=== PATIENT | female | born 1955 | race Caucasian/White ===

== ENCOUNTER 2022-02-02 17:12 | Inpatient (IN) ==
[2022-02-02] MEDS ORDERED: Acetaminophen 325 MG TABLET PO PRN (19:26)
[2022-02-02] MEDS ORDERED: Naloxone 0.4 MG/ML INJ IVP PRN (19:26)
[2022-02-02] MEDS ORDERED: *HR* LORazepam 1 MG TABLET PO PRN ×3 (20:23)
[2022-02-02 20:36] LABS: Calcium 7.9 mg/dL (8.6-10.3); Potassium 5.5 mEq/L (3.5-5.1)
[2022-02-02] MEDS ORDERED: *HR* Dextrose 50 % in Water (Syg) 50 ML SYRINGE IVP PRN (20:57)
[2022-02-02] MEDS ORDERED: D5% in Water 1,000 ML IVC PRN (20:57)
[2022-02-02] MEDS ORDERED: Dextrose Gel 15 GM/37.5 ML TUBE PO PRN ×2 (20:57)
[2022-02-02 20:59] LABS: Potassium,Urine 43.9 mEq/L; Sodium, Urine 10.2 mEq/L
[2022-02-02 21:07] LABS: Amphetamine Screen,Urine Negative ng/mL (Cutoff=1000); Barbiturate Screen,Urine Negative ng/mL (Cutoff=200); Benzodiazepines Screen,Urine Negative ng/mL (Cutoff=200); Cannabinoid Screen,Urine Negative ng/mL (Cutoff = 50); Cocaine Screen,Urine Negative ng/mL (Cutoff= 300); Opiate Screen,Urine Negative ng/mL (Cutoff=300); Phencyclidine Screen,Urine Negative ng/mL (Cutoff=25)
[2022-02-02 21:25] LABS: Bilirubin,Urine Negative (Negative); Blood,Urine Negative (Negative); Clarity,Urine Clear (Clear); Color,Urine Light-Yellow (Yellow); Glucose,Urine (UA) Normal (Normal); Ketones,Urine Negative (Negative); Leukocyte Esterase,Urine Trace (Negative); Nitrite,Urine Positive (Negative); Protein,Urine Negative (Neg-Trace); Specific Gravity,Urine 1.013 (1.010-1.025); Urobilinogen,Urine Normal (Normal)
[2022-02-02] MEDS: 0.9 % Sodium Chloride 1,000 ML IVC SCH (21:25)
[2022-02-02] MEDS: Ondansetron 4 MG/2 ML VIAL IVP PRN (21:25)
[2022-02-02 21:26] LABS: Bacteria,Urine Few per hpf (None-Few); RBC,Urine 0-3 per hpf (0-3); Squamous Epithelial Cell,Urine Few per hpf (None-Few); WBC,Urine 0-3 per hpf (0-3)
[2022-02-02] MEDS ORDERED: methylPREDNISolone 125 MG/2 ML VIAL IVP ONE (21:27)
[2022-02-02] MEDS ORDERED: SODIUM ZIRCONIUM CYCLOSILICATE 5 GM POWD.PACK PO ONE (21:30)
[2022-02-02] MEDS ORDERED: *HR* Heparin 5,000 UNIT/ML VIAL IVP ONE (21:37)
[2022-02-02] MEDS ORDERED: *HR* Heparin 5,000 UNIT/ML VIAL IVP PRN ×2 (21:37)
[2022-02-02 21:41] LABS: Adenovirus Not Detected (Not Detect); Bordetella Pertussis Not Detected (Not Detect); Chlamydophila pneumoniae Not Detected (Not Detect); Coronavirus 229E Not Detected (Not Detect); Coronavirus HKU1 Not Detected (Not Detect); Coronavirus NL63 Not Detected (Not Detect); Coronavirus OC43 Not Detected (Not Detect); Human Metapneumovirus Not Detected (Not Detect); Human Rhinovirus/Enterovirus DETECTED (Not Detect); Influenza A Subtype 2009 H1 Not Detected (Not Detect); Influenza B Not Detected (Not Detect); Mycoplasma pneumoniae Not Detected (Not Detect); Parainfluenza Virus 1 Not Detected (Not Detect); Parainfluenza Virus 2 Not Detected (Not Detect); Parainfluenza Virus 3 Not Detected (Not Detect); Parainfluenza Virus 4 Not Detected (Not Detect); Respiratory Syncytial Virus Not Detected (Not Detect); SARS-CoV-2 Not Detected (Not Detect)
[2022-02-02 22:03] LABS: Hematocrit 23.9 % (35.3-44.9); Mean Corpuscular HGB Conc 33.5 g/dL (31.6-35.5); Mean Corpuscular Hemoglobin 28.7 pg (28.0-33.3); Mean Corpuscular Volume 85.7 fL (83.0-100.0); Mean Platelet Volume 8.9 fL (9.4-12.4); Platelet Count 121 K/mcL (140-400); Red Blood Count 2.79 M/mcL (3.82-4.97); Red Cell Distribution Width 13.4 % (11.5-14.5); White Blood Count 12.1 K/mcL (4.3-11.1)
[2022-02-02] MEDS: *HR* Metoprolol 5 MG/5 ML VIAL IVP PRN (22:25)
[2022-02-02] MEDS ORDERED: GI Cocktail 40 ML EACH PO ONE (23:32)
[2022-02-03] MEDS: Heparin 25,000UNIT/250ML 1/2NS 25,000 UNIT/250 ML IV.SOLN IVC SCH (00:09)
[2022-02-03] MEDS: Insulin LISPRO 300 UNITS/3 ML VIAL SUBQ SCH ×6 (00:17→20:59)
[2022-02-03 02:03] LABS: Eosinophils % 0.1 %; Hemoglobin 7.8 g/dL (11.5-15.4); Immature Granulocytes % 0.3 % (0-4); Lymphocytes % 34.7 %
[2022-02-03 02:05] LABS: Basophils % 0.1 %; Hematocrit 23.4 % (35.3-44.9); Immature Platelets 0.7 % (1.1-6.1); Lymphocytes # 3.2 K/mcL (0.6-4.6); Mean Corpuscular HGB Conc 33.3 g/dL (31.6-35.5); Mean Corpuscular Hemoglobin 28.5 pg (28.0-33.3); Mean Corpuscular Volume 85.4 fL (83.0-100.0); Mean Platelet Volume 8.7 fL (9.4-12.4); Monocytes # 0.2 K/mcL (0.0-1.3); Monocytes % 1.6 %; Neutrophils # 5.8 K/mcL (1.6-8.9); Platelet Count 120 K/mcL (140-400); Red Blood Count 2.74 M/mcL (3.82-4.97); Red Cell Distribution Width 13.3 % (11.5-14.5); Segmented Neutrophils % 63.2 %; White Blood Count 9.2 K/mcL (4.3-11.1)
[2022-02-03 02:11] LABS: Prothrombin Time 10.8 Seconds (9.4-12.1)
[2022-02-03 03:48] LABS: BUN/Creatinine Ratio 33 (6-26); Blood Urea Nitrogen 52 mg/dL (8-23); Calcium 7.7 mg/dL (8.6-10.3); Carbon Dioxide 24 mEq/L (23-29); Chloride 89 mEq/L (98-107); Chol/HDL Ratio 1.5 (0-4.9); Cholesterol 140 mg/dL (< 200); Ethanol < 10 mg/dL (Less than 10); Glucose 129 mg/dL (70-105); HDL Cholesterol 94 mg/dL (40-59); LDL Cholesterol,Calculated 29 mg/dL (< 100); Magnesium 2.3 mg/dL (1.6-2.6); Osmolality,Calculated 272 (280-300); Phosphorous 3.1 mg/dL (2.7-4.5); Potassium 5.4 mEq/L (3.5-5.1); Sodium 123 mEq/L (136-145); Triglycerides 87 mg/dL (< 150); Troponin I 0.05 ng/mL (< 0.04)
[2022-02-03 03:55] LABS: Thyroid Stimulating Hormone 1.391 mcIU/mL (0.340-5.600)
[2022-02-03 08:26] LABS: Calcium 7.3 mg/dL (8.6-10.3); Potassium 5.4 mEq/L (3.5-5.1)
[2022-02-03] MEDS: Vitamin B Complex/Vit C/Vit E 1 EACH TABLET PO SCH (08:54)
[2022-02-03] MEDS: Folic Acid 1 MG TABLET PO SCH (08:54)
[2022-02-03] MEDS: Thiamine (B-1) 100 MG TABLET PO SCH (08:54)
[2022-02-03] MEDS: cefTRIAXone 1,000 MG in 0.9 % Sodium Chloride Mini Bag 100 ML IVPB SCH (08:58)
[2022-02-03] MEDS ORDERED: SODIUM ZIRCONIUM CYCLOSILICATE 5 GM POWD.PACK PO ONE (09:26)
[2022-02-03] MEDS ORDERED: Insulin Human Regular 10 UNIT in 0.9 % Sodium Chloride 10 ML IV ONE (09:32)
[2022-02-03] MEDS ORDERED: *HR* Dextrose 50 % in Water (Syg) 50 ML SYRINGE IVP ONE (09:32)
[2022-02-03] MEDS: 0.9 % Sodium Chloride 1,000 ML IVC SCH (09:33)
[2022-02-03] MEDS ORDERED: Calcium Gluconate 1gm/50mL 1 GM/50 ML BAG IVPB ONE (10:29)
[2022-02-03] MEDS: Azithromycin 500 MG in 0.9 % Sodium Chloride 250 ML IVPB SCH (10:34)
[2022-02-03] MEDS: Ipratropium/Albuterol Neb 3 ML IH PRN ×2 (11:48→16:22)
[2022-02-03] MEDS: GI Cocktail 40 ML EACH PO PRN ×2 (12:56→21:08)
[2022-02-03] MEDS: *HR* Metoprolol 5 MG/5 ML VIAL IVP PRN (13:17)
[2022-02-03 14:53] LABS: % Iron Saturation 25 % (15-50); Calcium 7.5 mg/dL (8.6-10.3); Ferritin 209 ng/mL (10-120); Iron 61 mcg/dL (50-170); Potassium 4.7 mEq/L (3.5-5.1); Transferrin 175 mg/dL (203-362)
[2022-02-03 15:04] LABS: Folate > 22.3 ng/mL (3.0-16.0); Vitamin B12 1035 pg/mL (250-1100)
[2022-02-03] MEDS: Budesonide/Formoterol 160/4.5 1 PUFF INH IH SCH (20:19)
[2022-02-03 20:31] LABS: Calcium 7.9 mg/dL (8.6-10.3); Potassium 4.1 mEq/L (3.5-5.1)
[2022-02-03] MEDS: Metoprolol 100 MG TABLET PO SCH (21:05)
[2022-02-03] MEDS: Melatonin 3 MG TABLET PO PRN (23:23)
[2022-02-04] MEDS: Heparin 25,000UNIT/250ML 1/2NS 25,000 UNIT/250 ML IV.SOLN IVC SCH (00:58)
[2022-02-04 06:50] LABS: Hematocrit 24.8 % (35.3-44.9); Hemoglobin 7.7 g/dL (11.5-15.4); Mean Corpuscular Hemoglobin 27.8 pg (28.0-33.3); Mean Corpuscular Volume 89.5 fL (83.0-100.0); Mean Platelet Volume 8.8 fL (9.4-12.4); Red Blood Count 2.77 M/mcL (3.82-4.97); Red Cell Distribution Width 13.8 % (11.5-14.5); White Blood Count 11.9 K/mcL (4.3-11.1)
[2022-02-04 06:51] LABS: Platelet Count 96 K/mcL (140-400)
[2022-02-04 07:01] LABS: Calcium 7.6 mg/dL (8.6-10.3); Potassium 4.1 mEq/L (3.5-5.1)
[2022-02-04] MEDS ORDERED: Tiotropium 10 INH DOSE IH ONE (07:33)
[2022-02-04] MEDS: Folic Acid 1 MG TABLET PO SCH (07:37)
[2022-02-04] MEDS: Metoprolol 100 MG TABLET PO SCH ×2 (07:37→19:57)
[2022-02-04] MEDS: Azithromycin 500 MG in 0.9 % Sodium Chloride 250 ML IVPB SCH (07:37)
[2022-02-04] MEDS: Thiamine (B-1) 100 MG TABLET PO SCH (07:37)
[2022-02-04] MEDS: Vitamin B Complex/Vit C/Vit E 1 EACH TABLET PO SCH (07:37)
[2022-02-04] MEDS: cefTRIAXone 1,000 MG in 0.9 % Sodium Chloride Mini Bag 100 ML IVPB SCH (07:40)
[2022-02-04] MEDS: Budesonide/Formoterol 160/4.5 1 PUFF INH IH SCH ×2 (07:42→20:28)
[2022-02-04] MEDS: Ipratropium/Albuterol Neb 3 ML IH PRN ×2 (07:42→20:27)
[2022-02-04] MEDS: Furosemide 40 MG TABLET PO SCH (07:43)
[2022-02-04] MEDS: Aspirin Enteric Coated 81 MG Tablet PO SCH (07:43)
[2022-02-04] MEDS: Tiotropium 10 INH DOSE IH SCH (07:44)
[2022-02-04] MEDS: Insulin LISPRO 300 UNITS/3 ML VIAL SUBQ SCH ×4 (08:29→19:59)
[2022-02-04] MEDS ORDERED: NON-FORMULARY MEDICATION 1 EACH EACH (Fluticasone/Umeclidin/Vilanter [Trelegy Ellipta 100- IH SCH (09:00)
[2022-02-04] MEDS ORDERED: SODIUM ZIRCONIUM CYCLOSILICATE 5 GM POWD.PACK PO ONE (09:26)
[2022-02-04] MEDS: Apixaban 5 MG TABLET PO SCH ×2 (11:20→19:56)
[2022-02-04] MEDS: Pantoprazole 40 MG VIAL IVP SCH (17:58)
[2022-02-04] MEDS: Melatonin 3 MG TABLET PO PRN (19:56)
[2022-02-05] MEDS: predniSONE 20 MG TABLET PO SCH ×2 (02:18→10:00)
[2022-02-05] MEDS: Pantoprazole 40 MG VIAL IVP SCH ×2 (05:56→18:20)
[2022-02-05] MEDS: Ipratropium/Albuterol Neb 3 ML IH PRN ×4 (08:04→21:28)
[2022-02-05] MEDS: Budesonide/Formoterol 160/4.5 1 PUFF INH IH SCH ×2 (08:04→21:28)
[2022-02-05] MEDS: Tiotropium 10 INH DOSE IH SCH (08:05)
[2022-02-05] MEDS: Insulin LISPRO 300 UNITS/3 ML VIAL SUBQ SCH ×4 (08:19→21:36)
[2022-02-05 09:47] LABS: Eosinophils % 0.2 %
[2022-02-05 09:49] LABS: Basophils % 0.1 %; Hematocrit 23.5 % (35.3-44.9); Hemoglobin 7.3 g/dL (11.5-15.4); Immature Granulocytes % 0.2 % (0-4); Immature Platelets 1.2 % (1.1-6.1); Lymphocytes # 3.4 K/mcL (0.6-4.6); Lymphocytes % 37.8 %; Mean Corpuscular HGB Conc 31.1 g/dL (31.6-35.5); Mean Corpuscular Hemoglobin 28.6 pg (28.0-33.3); Mean Corpuscular Volume 92.2 fL (83.0-100.0); Mean Platelet Volume 8.7 fL (9.4-12.4); Monocytes # 0.8 K/mcL (0.0-1.3); Monocytes % 8.9 %; Red Blood Count 2.55 M/mcL (3.82-4.97); Red Cell Distribution Width 13.6 % (11.5-14.5); Segmented Neutrophils % 52.8 %
[2022-02-05] MEDS: Metoprolol 100 MG TABLET PO SCH ×2 (10:00→21:36)
[2022-02-05] MEDS: Thiamine (B-1) 100 MG TABLET PO SCH (10:00)
[2022-02-05] MEDS: Vitamin B Complex/Vit C/Vit E 1 EACH TABLET PO SCH (10:01)
[2022-02-05] MEDS: Azithromycin 500 MG in 0.9 % Sodium Chloride 250 ML IVPB SCH (10:01)
[2022-02-05] MEDS: Furosemide 40 MG TABLET PO SCH (10:01)
[2022-02-05] MEDS: Apixaban 5 MG TABLET PO SCH ×2 (10:01→21:36)
[2022-02-05] MEDS: Aspirin Enteric Coated 81 MG Tablet PO SCH (10:01)
[2022-02-05] MEDS: cefTRIAXone 1,000 MG in 0.9 % Sodium Chloride Mini Bag 100 ML IVPB SCH (10:04)
[2022-02-05 10:06] LABS: Neutrophils # 4.8 K/mcL (1.6-8.9); Platelet Count 94 K/mcL (140-400)
[2022-02-05 10:10] LABS: Calcium 8.1 mg/dL (8.6-10.3)
[2022-02-05] MEDS: Fluticasone Propionate Nasal 50 MCG/SPRAY BOTTLE NS SCH (10:10)
[2022-02-05 10:41] LABS: Platelet Estimate Decreased (Normal)
[2022-02-05 10:42] LABS: Anisocytosis 1+ (Not Present)
[2022-02-05] MEDS ORDERED: 0.9 % Sodium Chloride 250 ML IVC SCH (11:45)
[2022-02-05] MEDS ORDERED: 0.9 % Sodium Chloride 250 ML ONE (15:25)
[2022-02-05] MEDS ORDERED: SODIUM CHLORIDE/NAHCO3/KCL/PEG 4,000 ML SOLN.RECON PO ONE (17:00)
[2022-02-06] MEDS: Ipratropium/Albuterol Neb 3 ML IH PRN ×4 (03:43→20:26)
[2022-02-06] MEDS: Pantoprazole 40 MG VIAL IVP SCH (06:07)
[2022-02-06] MEDS ORDERED: Albuterol 2.5 MG/3 ML NEBULIZER IH PRN (06:37)
[2022-02-06 08:48] LABS: Mean Corpuscular Hemoglobin 28.7 pg (28.0-33.3)
[2022-02-06 08:50] LABS: Hematocrit 24.8 % (35.3-44.9); Hemoglobin 7.8 g/dL (11.5-15.4); Immature Platelets 1.3 % (1.1-6.1); Mean Corpuscular HGB Conc 31.5 g/dL (31.6-35.5); Mean Corpuscular Volume 91.2 fL (83.0-100.0); Mean Platelet Volume 8.4 fL (9.4-12.4); Red Blood Count 2.72 M/mcL (3.82-4.97); Red Cell Distribution Width 13.9 % (11.5-14.5); White Blood Count 10.5 K/mcL (4.3-11.1)
[2022-02-06] MEDS: cefTRIAXone 1,000 MG in 0.9 % Sodium Chloride Mini Bag 100 ML IVPB SCH (08:56)
[2022-02-06 09:07] LABS: Calcium 7.4 mg/dL (8.6-10.3); Potassium 3.9 mEq/L (3.5-5.1)
[2022-02-06] MEDS: Insulin LISPRO 300 UNITS/3 ML VIAL SUBQ SCH ×4 (09:20→21:40)
[2022-02-06] MEDS: Budesonide/Formoterol 160/4.5 1 PUFF INH IH SCH ×2 (09:36→20:24)
[2022-02-06] MEDS: Tiotropium 10 INH DOSE IH SCH (09:37)
[2022-02-06] MEDS ORDERED: Lidocaine -MPF 2% 2 ML VIAL ONE ×2 (10:02→11:36)
[2022-02-06] MEDS ORDERED: *HR* Propofol 200 MG/20 ML VIAL IVP ONE ×2 (10:20→11:47)
[2022-02-06] MEDS ORDERED: Lidocaine -MPF 4% 5 ML AMPUL ONE (10:41)
[2022-02-06] MEDS ORDERED: Dexmedetomidine HCl 400 MCG/100 ML MLS IVC ONE (10:47)
[2022-02-06] MEDS ORDERED: Simethicone 40 MG/0.6 ML MLS ONE (11:39)
[2022-02-06] MEDS ORDERED: Simethicone 40 MG/0.6 ML MLS IR ONE (11:41)
[2022-02-06] MEDS ORDERED: *HR* Metoprolol 5 MG/5 ML VIAL IVP ONE (11:46)
[2022-02-06] MEDS: Vitamin B Complex/Vit C/Vit E 1 EACH TABLET PO SCH (13:59)
[2022-02-06] MEDS: Apixaban 5 MG TABLET PO SCH ×2 (14:00→21:40)
[2022-02-06] MEDS: predniSONE 20 MG TABLET PO SCH (14:01)
[2022-02-06] MEDS: Thiamine (B-1) 100 MG TABLET PO SCH (14:01)
[2022-02-06] MEDS: Metoprolol 100 MG TABLET PO SCH ×2 (14:02→21:41)
[2022-02-06] MEDS: Azithromycin 250 MG TABLET PO SCH (14:03)
[2022-02-06] MEDS: Furosemide 40 MG TABLET PO SCH (14:04)
[2022-02-06] MEDS: Fluticasone Propionate Nasal 50 MCG/SPRAY BOTTLE NS SCH (14:05)
[2022-02-06] MEDS ORDERED: Benzonatate 100 MG CAPSULE PO PRN (15:22)
[2022-02-07 05:53] LABS: Mean Platelet Volume 8.6 fL (9.4-12.4)
[2022-02-07 05:55] LABS: Hematocrit 24.1 % (35.3-44.9); Hemoglobin 7.5 g/dL (11.5-15.4); Mean Corpuscular HGB Conc 31.1 g/dL (31.6-35.5); Mean Corpuscular Hemoglobin 28.1 pg (28.0-33.3); Mean Corpuscular Volume 90.3 fL (83.0-100.0); Platelet Count 136 K/mcL (140-400); Red Blood Count 2.67 M/mcL (3.82-4.97); Red Cell Distribution Width 14.2 % (11.5-14.5); White Blood Count 9.1 K/mcL (4.3-11.1)
[2022-02-07 06:11] LABS: Calcium 7.5 mg/dL (8.6-10.3)
[2022-02-07 06:34] LABS: Lymphocytes # 5.1 K/mcL (0.6-4.6); Monocytes # 0.2 K/mcL (0.0-1.3); Neutrophils # 3.8 K/mcL (1.6-8.9); Platelet Estimate Decreased (Normal)
[2022-02-07] MEDS: Ipratropium/Albuterol Neb 3 ML IH PRN ×4 (07:20→20:23)
[2022-02-07] MEDS: Budesonide/Formoterol 160/4.5 1 PUFF INH IH SCH ×2 (07:20→20:23)
[2022-02-07] MEDS: Tiotropium 10 INH DOSE IH SCH (07:22)
[2022-02-07] MEDS: Insulin LISPRO 300 UNITS/3 ML VIAL SUBQ SCH ×4 (07:32→20:40)
[2022-02-07] MEDS: Azithromycin 250 MG TABLET PO SCH (09:06)
[2022-02-07] MEDS: Vitamin B Complex/Vit C/Vit E 1 EACH TABLET PO SCH (09:06)
[2022-02-07] MEDS: cefTRIAXone 1,000 MG in 0.9 % Sodium Chloride Mini Bag 100 ML IVPB SCH (09:06)
[2022-02-07] MEDS: Thiamine (B-1) 100 MG TABLET PO SCH (09:07)
[2022-02-07] MEDS: Fluticasone Propionate Nasal 50 MCG/SPRAY BOTTLE NS SCH (09:07)
[2022-02-07] MEDS: predniSONE 20 MG TABLET PO SCH (09:07)
[2022-02-07] MEDS: Metoprolol 100 MG TABLET PO SCH ×2 (09:07→20:40)
[2022-02-07] MEDS: Furosemide 40 MG TABLET PO SCH (09:07)
[2022-02-07] MEDS: Ondansetron 4 MG/2 ML VIAL IVP PRN (10:57)
[2022-02-07] MEDS ORDERED: Patient Taking Own Medication 1 EACH PO SCH (18:50)
[2022-02-08] MEDS: Ipratropium/Albuterol Neb 3 ML IH PRN ×5 (01:41→19:54)
[2022-02-08] MEDS: Budesonide/Formoterol 160/4.5 1 PUFF INH IH SCH ×2 (07:19→19:55)
[2022-02-08] MEDS: Tiotropium 10 INH DOSE IH SCH (07:21)
[2022-02-08 07:48] LABS: Calcium 7.4 mg/dL (8.6-10.3); Potassium 3.5 mEq/L (3.5-5.1)
[2022-02-08 07:55] LABS: Hematocrit 22.9 % (35.3-44.9); Hemoglobin 7.2 g/dL (11.5-15.4); Mean Corpuscular HGB Conc 31.4 g/dL (31.6-35.5); Mean Corpuscular Hemoglobin 28.7 pg (28.0-33.3); Mean Corpuscular Volume 91.2 fL (83.0-100.0); Mean Platelet Volume 8.5 fL (9.4-12.4); Platelet Count 113 K/mcL (140-400); Red Blood Count 2.51 M/mcL (3.82-4.97); Red Cell Distribution Width 14.3 % (11.5-14.5); White Blood Count 8.2 K/mcL (4.3-11.1)
[2022-02-08] MEDS: Metoprolol 100 MG TABLET PO SCH ×2 (08:35→21:15)
[2022-02-08] MEDS: Thiamine (B-1) 100 MG TABLET PO SCH (08:35)
[2022-02-08] MEDS: Insulin LISPRO 300 UNITS/3 ML VIAL SUBQ SCH ×4 (08:35→21:14)
[2022-02-08] MEDS: Vitamin B Complex/Vit C/Vit E 1 EACH TABLET PO SCH (08:35)
[2022-02-08] MEDS: Furosemide 40 MG TABLET PO SCH (08:35)
[2022-02-08] MEDS: Fluticasone Propionate Nasal 50 MCG/SPRAY BOTTLE NS SCH (08:35)
[2022-02-08 09:49] LABS: Hypochromasia Present (Not Present); Lymphocytes # 4.4 K/mcL (0.6-4.6); Monocytes # 0.8 K/mcL (0.0-1.3); Poikilocytosis 1+ (Not Present)
[2022-02-08 09:50] LABS: Large Platelets Present (Not Present); Platelet Estimate Slight Decrease (Normal)
[2022-02-08] MEDS ORDERED: 0.9 % Sodium Chloride 250 ML IVC SCH (10:45)
[2022-02-08] MEDS: Melatonin 3 MG TABLET PO PRN (21:15)
[2022-02-08] MEDS: Ipratropium/Albuterol Neb 3 ML IH SCH (22:44)
[2022-02-09 02:17] LABS: Basophils % 0.1 %; Eosinophils # 0.2 K/mcL (0.0-0.6); Eosinophils % 2.2 %; Hemoglobin 8.6 g/dL (11.5-15.4); Immature Granulocytes % 0.5 % (0-4); Lymphocytes # 3.8 K/mcL (0.6-4.6); Lymphocytes % 48.3 %; Mean Corpuscular HGB Conc 31.9 g/dL (31.6-35.5); Mean Corpuscular Hemoglobin 28.6 pg (28.0-33.3); Mean Corpuscular Volume 89.7 fL (83.0-100.0); Mean Platelet Volume 8.1 fL (9.4-12.4); Monocytes # 0.7 K/mcL (0.0-1.3); Monocytes % 8.9 %; Neutrophils # 3.1 K/mcL (1.6-8.9); Platelet Count 113 K/mcL (140-400); Red Blood Count 3.01 M/mcL (3.82-4.97); Red Cell Distribution Width 14.4 % (11.5-14.5); White Blood Count 7.8 K/mcL (4.3-11.1)
[2022-02-09 02:36] LABS: Calcium 7.4 mg/dL (8.6-10.3); Potassium 3.8 mEq/L (3.5-5.1)
[2022-02-09] MEDS: Ipratropium/Albuterol Neb 3 ML IH SCH ×5 (04:26→19:59)
[2022-02-09 04:40] LABS: Hypochromasia Present (Not Present); Platelet Estimate Decreased (Normal)
[2022-02-09] MEDS: Tiotropium 10 INH DOSE IH SCH (07:57)
[2022-02-09] MEDS: Budesonide/Formoterol 160/4.5 1 PUFF INH IH SCH ×2 (07:57→19:59)
[2022-02-09] MEDS: Vitamin B Complex/Vit C/Vit E 1 EACH TABLET PO SCH (08:12)
[2022-02-09] MEDS: Metoprolol 100 MG TABLET PO SCH ×2 (08:12→21:05)
[2022-02-09] MEDS: Fluticasone Propionate Nasal 50 MCG/SPRAY BOTTLE NS SCH (08:12)
[2022-02-09] MEDS: Thiamine (B-1) 100 MG TABLET PO SCH (08:12)
[2022-02-09] MEDS: Furosemide 40 MG TABLET PO SCH (08:12)
[2022-02-09 08:18] VITALS: TEMP 97.6
[2022-02-09] MEDS: Insulin LISPRO 300 UNITS/3 ML VIAL SUBQ SCH ×4 (08:27→21:05)
[2022-02-09 21:02] VITALS: BP 157/64; PULSE 106; O2SAT 93
== END 2022-02-09 23:59 | disposition other institution (70) | DRG 871 ==
LOC: 2NENU → SUATTDRO 19:26
PROVIDERS: ADMIT Internal Medicine; ATTEND Internal Medicine